=== PATIENT | female | born 1965 | race Caucasian/White ===

== ENCOUNTER 2019-07-23 11:55 | Outpatient (CLI) | payer OTHER, BC, SELFPAY ==
--- NOTE | 2019-07-23 12:05 | XRR_ITS ---
PROCEDURE INFORMATION: Exam: XR Right Foot Complete Exam date and time: 07/23/2019 12:08 PM Age: 54 years old Clinical indication: Injury or trauma; Injury history: Dropped trailer ramp on foot; Initial encounter; Blunt trauma; Right; Injury date: 07/22/19; Prior surgery; Surgery type: Cyst removal RT foot; Additional info: Pain TECHNIQUE: Imaging protocol: XR Right foot. Views: Frontal, lateral, and oblique views. COMPARISON: CR Foot 3 views, RIGHT* [id number] 11/15/2017 8:53 AM FINDINGS: Bones/joints: Slight lateral articular marginal hypertrophy and medial joint narrowing of the 1st metatarsophalangeal joint. No acute bony abnormality identified. An os tibiale externum is present, a sometimes symptomatic normal variant. A small plantar calcaneal ossified spur is present. Soft tissues: Normal. XR/XR foot RT min 3V* [id number] IMPRESSION: 1. 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 2. No acute bony injury identified. 3. Plantar calcaneal spur.
== END 2019-07-23 11:56 | disposition home or self-care (01) ==
LOC: RAD 12:01
PROVIDERS: PCP Electrodiagnostic Medicine; Visit Provider Electrodiagnostic Medicine
DX: M25.571 Pain in right ankle and joints of right foot (principal); M19.071 Primary osteoarthritis, right ankle and foot; M77.31 Calcaneal spur, right foot
CPT/HCPCS: 73630

== ENCOUNTER 2020-06-03 15:13 | Outpatient (CLI) | payer OTHER, BC, SELFPAY ==
--- NOTE | 2020-06-03 15:18 | MM_ITS ---
WS: [id number] BILATERAL DIGITAL SCREENING MAMMOGRAPHY WITH CAD CLINICAL INFORMATION: SCREENING HISTORY: Screening mammogram. No current complaints. COMPARISON: TECHNIQUE: Bilateral CC and MLO views. FINDINGS: Scattered fibroglandular densities bilaterally. No suspicious focal mass, asymmetry, calcifications, or architectural distortion. No evidence of malignancy. MM/[place] [id number] IMPRESSION: BI-RADS: 1-Negative FOLLOW UP: 1 Year Follow-up Recommend return to annual screening mammography.
== END 2020-06-03 15:14 | disposition home or self-care (01) ==
LOC: RADSHAW 15:17
PROVIDERS: PCP Electrodiagnostic Medicine; Visit Provider Electrodiagnostic Medicine
DX: Z12.31 Encounter for screening mammogram for malignant neoplasm of breast (principal)
CPT/HCPCS: 77067

== ENCOUNTER → 2022-07-11 15:31 | Outpatient (BNVA) | payer BC, OTHER, SELFPAY | PROVIDERS: PCP Electrodiagnostic Medicine; Visit Provider Podiatrist Foot & Ankle Surgery | DX: M20.12 Hallux valgus (acquired), left foot (principal); M20.5X2 Other deformities of toe(s) (acquired), left foot | CPT/HCPCS: 73630 ==

== ENCOUNTER → 2022-10-10 11:44 | Outpatient (BNVA) | payer BC, OTHER, SELFPAY | PROVIDERS: PCP Electrodiagnostic Medicine; Visit Provider Internal Medicine | DX: L40.9 Psoriasis, unspecified (principal); M19.90 Unspecified osteoarthritis, unspecified site; M79.672 Pain in left foot; M20.5X2 Other deformities of toe(s) (acquired), left foot; M20.12 Hallux valgus (acquired), left foot | CPT/HCPCS: 36415; 72100; 72202; 73120; 80053; 82550; 83516; 83520; 84443; 85025; 85651; 86140; 86160; 86162; 86200; 86235; 86255; 86376; 86431; 86704; 86803; 86812; 87340 ==

== ENCOUNTER → 2022-12-06 12:33 | Outpatient (BNVA) | payer BC, OTHER, SELFPAY | PROVIDERS: PCP Electrodiagnostic Medicine; Visit Provider Internal Medicine | DX: M19.90 Unspecified osteoarthritis, unspecified site (principal); M79.672 Pain in left foot; M20.5X2 Other deformities of toe(s) (acquired), left foot; M79.643 Pain in unspecified hand; M47.812 Spondylosis without myelopathy or radiculopathy, cervical region | CPT/HCPCS: 36415; 72040; 86003; 86008 ==

== ENCOUNTER → 2023-08-08 10:42 | Outpatient (BNVA) | payer BC, OTHER, SELFPAY | PROVIDERS: PCP Electrodiagnostic Medicine; Visit Provider Podiatrist Foot & Ankle Surgery | DX: M20.11 Hallux valgus (acquired), right foot; M20.12 Hallux valgus (acquired), left foot; M20.41 Other hammer toe(s) (acquired), right foot; M20.42 Other hammer toe(s) (acquired), left foot | CPT/HCPCS: 73630 ==

== ENCOUNTER 2023-09-11 05:48 | Day surgery (SDC) | payer BC, OTHER, SELFPAY ==
--- NOTE | 2023-09-11 | XR_ITS ---
WS: [id number] INTRAOPERATIVE TECHNIQUE: 2 Spot fluoroscopic images for intraoperative purposes. FLUOROSCOPY TIME: 5 minutes 40 seconds [facility] COMPARISON: None. FINDINGS: Intraoperative changes cannulated screw fixation across the first metatarsal with bunionectomy. XR/XR foot LT 2V [id number] IMPRESSION: Images obtained for intraoperative purposes.
[2023-09-11 06:04] VITALS: BP 143/93; PULSE 89; RESP 16; TEMP 36.2; O2SAT 97; BMI 31.5
[2023-09-11] MEDS: acetaminophen 1,000 MG/100 ML PIGGYBACK 400 MG IV (06:18)
[2023-09-11] MEDS: sodium chloride 0.9% 1,000 ML 30 ML IV (06:21)
--- NOTE | 2023-09-11 06:47 | W.PM.OPSFHP ---
Same Day Surgery H&P Indication for Procedure/HPI DATE OF PROCEDURE: September 11, 2023 CHIEF COMPLAINT/INDICATIONFOR SURGICAL PROCEDURE: LEft foot hallux valgus PREOP DIAGNOSIS: Left foot hallux valgus PLANNED PROCEDURE: Operation Date: 09/11/23 07:00 Proposed Procedures p Bunionectomy Antonio(Left) - Charly Nuñez DPM s Xavi Bunionectomy(Left) - Charly Nuñez DPM Medications/Allergies* Home Medications Medication Instructions Recorded Confirmed Type amitriptyline 10 mg tablet 10 mg PO BEDTIME 07/11/22 09/10/23 History atorvastatin 40 mg tablet 40 mg PO DAILY 07/11/22 09/10/23 History levothyroxine 75 mcg capsule 75 mcg PO DAILY 07/11/22 09/10/23 History meloxicam 15 mg tablet 15 mg PO DAILY 07/11/22 09/10/23 History montelukast 10 mg tablet 10 mg PO DAILY 07/11/22 09/10/23 History paroxetine HCl 10 mg tablet 10 mg PO DAILY 07/11/22 09/10/23 History cetirizine 10 mg tablet (Zyrtec) 10 mg PO DAILY PRN allergies 06/20/23 09/10/23 History tizanidine 4 mg tablet 4 mg PO BEDTIME 09/10/23 09/11/23 History Allergies/Adverse Reactions Allergy/AdvReac Type Severity Reaction Status Date / Time Alpha-Gal Allergy ALGY-Anaphy Verified 09/10/23 10:44 (Dttkkeswf-Gidzh-2,3-Gala laxis Sulfa (Sulfonamide Allergy vomit Verified 08/08/23 10:39 Antibiotics) Current Medications: Generic Name Dose Route Start Last Admin Trade Name Freq PRN Reason Stop Dose Admin Sodium Chloride 1,000 mls @ 30 mls/hr 09/11/23 06:00 09/11/23 06:21 Sodium Chloride 0.9% IV 09/12/23 05:59 30 mls/hr .Q24H DREA Administration Pertinent History/Comorbid Conditions* Medical History (Updated 06/20/23 @ 16:01 by Charly Nuñez DPM) Thyroid disease Osteoarthritis Social History Smoking and tobacco/nicotine status: never used tobacco/nicotine Alcohol intake: current Pertinent Exam Findings alert, oriented x 3, clear to auscultation bilaterally, regular rate & rhythm, operative site marked and procedure specific exam findings Musculoskeletal: Left foot hallux valgus deformity, pain with palpation medial eminence. No pain with range of motion of first metatarsophalangeal joint. Tracking, reducible. Recommendations Surgery/Procedure today Other Plans: Left foot bunionectomy Coding Level of Care Code Acute Code for g Fwd
--- NOTE | 2023-09-11 06:58 | ANES.PREANE2 ---
Pre-Anesthetic Assessment Height/Weight: Height 1.6 m Weight 80.739 kg Temp Pulse Resp BP Pulse Ox O2 Del Method 97.2 F L 89 16 143/93 97 Room Air 09/11/23 06:04 09/11/23 06:04 09/11/23 06:04 09/11/23 06:04 09/11/23 06:04 09/11/23 06:04 Preop Diagnosis: Left foot hallux valgus Operation Date: 09/11/23 07:00 Proposed Procedures p Bunionectomy Antonio(Left) - Charly Nuñez DPM s Xavi Bunionectomy(Left) - Charly Nuñez DPM Familial anesthetic complications: None Was Beta Kadie taken within 24 hours: N/A Was Clonidine taken within 24 hours: N/A Last intake: Intake Last Liquid Date 09/10/23 Last Liquid Time 00:00 Last Solid Date 09/10/23 Last Solid Time 18:30 Social Alcohol (2 beers nightly) and No tobacco Exam alert, oriented x 3, clear to auscultation bilaterally and regular rate & rhythm Airway Mallampati: Class III Dentition: other (missing teeth) Pulmonary Sleep Apnea (inspire implant) Metabolic Thyroid Disease Anesthetic Plan ASA status: 3 Anesthesia: MAC Risk of > 500 ml blood loss (7ml/kg in children): No Other Pertinent Information alpha gal Medications/Allergies Home Medications Medication Instructions Recorded Confirmed Last Taken Type amitriptyline 10 mg tablet 10 mg PO BEDTIME 07/11/22 09/10/23 09/10/23 History atorvastatin 40 mg tablet 40 mg PO DAILY 07/11/22 09/10/23 09/10/23 History levothyroxine 75 mcg capsule 75 mcg PO DAILY 07/11/22 09/10/23 09/10/23 History meloxicam 15 mg tablet 15 mg PO DAILY 07/11/22 09/10/23 09/04/23 History montelukast 10 mg tablet 10 mg PO DAILY 07/11/22 09/10/23 09/10/23 History paroxetine HCl 10 mg tablet 10 mg PO DAILY 07/11/22 09/10/23 09/10/23 History cetirizine 10 mg tablet (Zyrtec) 10 mg PO DAILY PRN allergies 06/20/23 09/10/23 09/07/23 History tizanidine 4 mg tablet 4 mg PO BEDTIME 09/10/23 09/11/23 09/10/23 History hydrocodone 5 mg-acetaminophen 325 1 tab PO Q6H PRN pain #20 tabs 09/11/23 Unknown Rx mg tablet Allergies Allergy/AdvReac Type Severity Reaction Status Date / Time Alpha-Gal Allergy ALGY-Anaphy Verified 09/10/23 10:44 (Jiirsqiux-Icgao-7,3-Gala laxis Sulfa (Sulfonamide Allergy vomit Verified 08/08/23 10:39 Antibiotics) Current Medications Generic Name Dose Route Start Last Admin Trade Name Freq PRN Reason Stop Dose Admin Sodium Chloride 1,000 mls @ 30 mls/hr 09/11/23 06:00 09/11/23 06:21 Sodium Chloride 0.9% IV 09/12/23 05:59 30 mls/hr .Q24H DREA Administration PFSH Anesthesia Medical History Thyroid disease Osteoarthritis Social History Smoking and tobacco/nicotine status: never used tobacco/nicotine Alcohol intake: current Data Anesthesia Cardiac Studies: No Data to Display
[2023-09-11] MEDS: ceFAZolin 2,000 mg SDV 2000 MG IVP (07:04)
[2023-09-11] MEDS: BUPivacaine 0.5% INJ 30 mL INJECTION ×2 (07:11→08:00)
--- NOTE | 2023-09-11 08:30 | W.PM.BPON ---
Date of procedure: 09/11/2023 Surgeon name: Milka DaileyPTiffanie Cutting Machine Tender Helper(s) name(s): MARGO Ruiz Procedure(s) performed: Left foot Antonio bunionectomy Description of findings: Left foot hallux valgus corrected with distal first metatarsal osteotomy Estimated blood loss: 5 cc Tourniquet time: 55 minutes Specimen(s) removed: None Post-operative diagnosis: Left foot hallux valgus
--- NOTE | 2023-09-11 08:31 | PM.OP ---
Operative Report Date of procedure: September 11, 2023 Pre-op diagnosis: Left foot hallux valgus Post-op diagnosis: Same Post-op findings: Repair of left foot hallux valgus via distal first metatarsal osteotomy Procedure done: Left foot Antonio bunionectomy CPT 84425 Implants: Two 4.0 cannulated compression screws from [employer] [employer] Surgeon: Charly Nuñez DPM Cashier Or Checker Stock Clerk: MARGO Ruiz Estimated blood loss: 5 cc 55 minutes Complications: None Findings: See above Procedure: Patient is a 58-year-old female that has a history of left foot hallux valgus. The patient has had the aforementioned chief complaint for some time. Conservative treatment measures have been attempted and the patient has opted for surgical intervention at this time. A lengthy discussion regarding the procedure, including risks and complications has been had with the patient and is noted in the recent clinic note. Written and verbal consent have been obtained. All patient questions have been answered to the patient?s satisfaction. No written or verbal guarantees have been given or implied. The patient has been NPO since midnight. The history has been reviewed and the history and physical is current. The signed consent was confirmed and placed in the patient chart. Patient imaging has been reviewed and is consistent with the diagnosis. Under mild sedation, the patient was brought into the operating room and placed on the table in the supine position. IV antibiotics were given by the anesthesia team as preoperative surgical prophylaxis. General sedation was then performed by the anesthesiateam. A local field block was performed using 0.5% marcaine plain. A pneumatic tourniquet was then placed about the left thigh. The operative extremity was then prepped and draped in the usual fashion. The extremity was then elevated and exsanguinated before the tourniquet was inflated to 325 mmHg. After inflation, the following procedure was then performed. Attention was directed to the left foot where a percutaneous stab incision was made using a #15 blade at the level of the first metatarsal head. Periosteal elevator was used to free of the periosteum on the dorsal plantar aspect of first metatarsal. Next a Jo bur was inserted into the incision and under direct fluoroscopy visualization a transverse osteotomy was made at the level of the first metatarsal neck. A reduction jig was then fixated to the medial aspect of the left foot. The first metatarsal was translated in the lateral direction in the transverse plane before frontal plane rotation was performed to align the sesamoids to the appropriate anatomic position. Next 2 guidewires were driven proximal medial to distal lateral across the osteotomy site. Good positioning of the wires was noted clinically as well as on C-arm imaging. 15 blade was used to make percutaneous stab incision at the base of the wires at the insertion of the skin. The drill for the 4.0 cannulated screw system was then used to drill over the wires across the osteotomy site. The 4.0 headless compression screws were then inserted over the wires and across the osteotomy site. Good purchase of the screws was noted. Good positioning of the screws was noted on C-arm imaging. The site was then irrigated copious amounts sterile saline. A reciprocating power rasp was used to remove the medial shelf of the first metatarsal at the osteotomy site. The tourniquet was let down and good hyperemic response was noted to all digits of the left foot. The incisions were closed using 4-0 nylon in horizontal mattress fashion before being dressed with Xeroform, 4 x 4 gauze, Kerlix, Wenceslao. Patient was placed in a cam boot. The patient tolerated the procedure and anesthesia well and without complication. The patient was transported from the operating room to the recovery room with vital signs stable and vascular status intact to all digits of the left foot. The patient was given both written and verbal instructions to remain weightbearing as tolerated in cam boot to the operative extremity, to keep dressings/splint clean, dry and intact and to take pain medication as directed. The patient will follow-up in the outpatient setting at their scheduled appointment. The patient was discharged with my personal number and was instructed to call if any questions or issues should arise. They were discharged home once anesthesia criteria was met.
[2023-09-11 08:34] VITALS: BP 123/76; PULSE 86; RESP 12; TEMP 36.2; O2SAT 94
[2023-09-11 08:39] VITALS: BP 111/74; PULSE 78; RESP 15; O2SAT 95
[2023-09-11 08:44] VITALS: BP 111/66; PULSE 79; RESP 16; O2SAT 95
[2023-09-11 08:49] VITALS: BP 114/73; PULSE 77; RESP 17; TEMP 36.5; O2SAT 93
[2023-09-11 08:53] VITALS: BP 116/87; PULSE 76; RESP 18; TEMP 36.6; O2SAT 95
--- NOTE | 2023-09-11 09:50 | ANE.PACU2 ---
Inpatient post-anesthesia follow up: Airway intact: Yes Vital signs: Temperature 98 F Pulse Rate 76 Respiratory Rate 18 Blood Pressure 116/87 Pulse Oximetry 95 Oxygen Delivery Me thod Room Air Oxygen Flow Rate Fraction of Inspir ed Oxygen Hydration adequate: Yes Nausea and vomiting: No Pain level: 1 Mental status: Baseline
== END 2023-09-11 09:50 | disposition home or self-care (01) ==
PROVIDERS: PCP Electrodiagnostic Medicine; Visit Provider Podiatrist Foot & Ankle Surgery
PROC: (CPT 28296; principal; 2023-09-11 07:00)
PROC: (CPT 28298; 2023-09-11 07:00)
DX: M20.12 Hallux valgus (acquired), left foot (principal); G47.30 Sleep apnea, unspecified; M19.90 Unspecified osteoarthritis, unspecified site
CPT/HCPCS: 28298; 73620; 76000; C1713; J0131; J0690; J1100; J2250; J2405; J2704; J3010; J3490; J7030

== ENCOUNTER → 2023-09-24 08:33 | Outpatient (BNVA) | payer BC, OTHER, SELFPAY | PROVIDERS: PCP Electrodiagnostic Medicine; Visit Provider Podiatrist Foot & Ankle Surgery | DX: M79.672 Pain in left foot (principal); Z98.890 Other specified postprocedural states; M20.41 Other hammer toe(s) (acquired), right foot; M20.42 Other hammer toe(s) (acquired), left foot; M20.21 Hallux rigidus, right foot | CPT/HCPCS: 73630 ==

== ENCOUNTER → 2023-10-09 13:37 | Outpatient (BNVA) | payer BC, OTHER, SELFPAY | PROVIDERS: PCP Electrodiagnostic Medicine; Visit Provider Podiatrist Foot & Ankle Surgery | DX: M20.12 Hallux valgus (acquired), left foot (principal); Z98.890 Other specified postprocedural states; M20.11 Hallux valgus (acquired), right foot; M20.41 Other hammer toe(s) (acquired), right foot; M20.42 Other hammer toe(s) (acquired), left foot; M20.21 Hallux rigidus, right foot | CPT/HCPCS: 73630 ==

== ENCOUNTER → 2023-10-23 13:21 | Outpatient (BNVA) | payer BC, OTHER, SELFPAY | PROVIDERS: PCP Electrodiagnostic Medicine; Visit Provider Podiatrist Foot & Ankle Surgery | DX: M20.21 Hallux rigidus, right foot (principal); M20.41 Other hammer toe(s) (acquired), right foot; M20.42 Other hammer toe(s) (acquired), left foot; Z98.890 Other specified postprocedural states; M20.12 Hallux valgus (acquired), left foot | CPT/HCPCS: 73630 ==

== ENCOUNTER 2023-11-06 07:53 | Day surgery (SDC) | payer BC, OTHER, SELFPAY ==
[2023-11-06] VITALS (7 sets, daily range): BP systolic 113–143; BP diastolic 57–89; PULSE 72–89; RESP 12–17; TEMP 36.2–36.7; O2SAT 94–99; BMI 30.6
--- NOTE | 2023-11-06 | XR_ITS ---
WS: [id number] XR foot RT 2V [id number] REASON FOR EXAM: AMOS PICS FINDINGS: Plate and screw fixation arthrodesis of the first MTP joint correcting the previously demonstrated va lgus deformity. Surgical appliances are intact and in proper position and alignment. XR/XR foot RT 2V [id number] IMPRESSION: First toe MTP joint arthrodesis as above without abnormality.
--- NOTE | 2023-11-06 08:10 | ANES.PREANE2 ---
Pre-Anesthetic Assessment Height/Weight: Height 5 ft 3 in Weight 173 lb Preop Diagnosis: Hallux rigidus right foot Operation Date: 11/06/23 09:30 Proposed Procedures p Arthrodesis Foot Metatarsophalangeal Joint Arthrodesis(Right) - Charly Nuñez DPM Social No alcohol and No tobacco Exam alert, oriented x 3, clear to auscultation bilaterally and regular rate & rhythm Airway Submandibular: within normal limits Cervical ROM: within normal limits Mallampati: Class II Dentition: other (missing a few back molars) Anesthetic Plan ASA status: 2 Anesthesia: MAC Other: No prior issues with anesthetic NPO since midnight Hypothyroidism, on Synthroid Patient denies any cardiac or pulmonary issues Alpha gal?will use dipravan METS>4 Plan for MAC with surgeon local Medications/Allergies Home Medications Medication Instructions Recorded Confirmed Last Taken Type amitriptyline 10 mg tablet 10 mg PO BEDTIME 07/11/22 11/05/23 11/05/23 22:00 History atorvastatin 40 mg tablet 40 mg PO DAILY 07/11/22 11/05/23 11/05/23 History levothyroxine 75 mcg capsule 75 mcg PO DAILY 07/11/22 11/05/23 11/05/23 History meloxicam 15 mg tablet 15 mg PO DAILY 07/11/22 11/05/23 10/27/23 History montelukast 10 mg tablet 10 mg PO DAILY 07/11/22 11/05/23 11/05/23 History paroxetine HCl 10 mg tablet 10 mg PO DAILY 07/11/22 11/05/23 11/05/23 History cetirizine 10 mg tablet (Zyrtec) 10 mg PO DAILY PRN allergies 06/20/23 11/05/23 11/05/23 History tizanidine 4 mg tablet 4 mg PO BEDTIME 09/10/23 11/05/23 11/05/23 History hydrocodone 5 mg-acetaminophen 325 1 tab PO Q6H PRN pain #20 tabs 09/11/23 11/05/23 Unknown Rx mg tablet Allergies Allergy/AdvReac Type Severity Reaction Status Date / Time Alpha-Gal Allergy ALGY-Anaphy Verified 10/23/23 13:18 (Qzvcgmoyx-Aezkh-3,3-Gala laxis Sulfa (Sulfonamide Allergy vomit Verified 10/23/23 13:18 Antibiotics) [facility] Anesthesia Medical History Thyroid disease Osteoarthritis Social History Smoking and tobacco/nicotine status: never used tobacco/nicotine Alcohol intake: current Data Anesthesia Cardiac Studies: No Data to Display
[2023-11-06] MEDS: sodium chloride 0.9% 1,000 ML 30 ML IV (08:54)
[2023-11-06] MEDS: acetaminophen 1,000 MG/100 ML PIGGYBACK 400 MG IV (08:55)
--- NOTE | 2023-11-06 10:09 | W.PM.OPSUD ---
Surgery/Procedure H&P Update DATE OF PROCEDURE: November 06, 2023 DATE H&P PERFORMED: 10/23/23 H&P UPDATE INFORMATION: I have reviewed H&P completed within last 30 days, I have examined patient prior to procedure, No changes to prior documentation and H&P is in [facility] EMR on date indicated PREOP DIAGNOSIS: Hallux rigidus right foot PLANNED PROCEDURE: Operation Date: 11/06/23 09:30 Proposed Procedures p Arthrodesis Foot Metatarsophalangeal Joint Arthrodesis(Right) - Charly Nuñez DPM
[2023-11-06] MEDS: ceFAZolin 2,000 mg SDV 2000 MG IVP (10:30)
[2023-11-06] MEDS: BUPivacaine 0.5% INJ 30 mL 60 ML INJECTION (11:16)
--- NOTE | 2023-11-06 11:47 | W.PM.BPON ---
Date of procedure: 11/06/2023 Surgeon name: Milka DaileyPTiffanie Escape Wheel Tooth Cutter(s) name(s): Jordan Procedure(s) performed: Right first metatarsophalangeal joint arthrodesis Description of findings: Arthritis first metatarsophalangeal joint Estimated blood loss: 5 cc Tourniquet time: 51 minutes Specimen(s) removed: None Post-operative diagnosis: Right hallux rigidus
--- NOTE | 2023-11-06 11:47 | PM.OP ---
Operative Report Date of procedure: November 06, 2023 Surgeon: Charly Nuñez DPM Procedure: Date of procedure: 11/06/2023 Pre-op diagnosis: Right hallux rigidus Post-op diagnosis: Same Post-op findings: Arthritic changes of first metatarsophalangeal joint with concomitant hallux valgus deformity Procedure done: Right foot first metatarsophalangeal joint arthrodesis CPT 19817 Implants: First metatarsophalangeal joint arthrodesis plate from [employer] with headless compression screw Specimens removed: None Surgeon: Dr. Charly Nuñez DPM Temporary Help Agency Referral Clerk: Jordan Estimated blood loss: 5 cc Tourniquet time: 51 Complications: None Patient is a 58-year-old female that has a history of right hallux rigidus. The patient has had the aforementioned chief complaint for some time. Conservative treatment measures have been attempted and the patient has opted for surgical intervention at this time. A lengthy discussion regarding the procedure, including risks and complications has been had with the patient and is noted in the recent clinic note. Written and verbal consent have been obtained. All patient questions have been answered to the patient?s satisfaction. No written or verbal guarantees have been given or implied. The patient has been NPO since midnight. The history has been reviewed and the history and physical is current. The signed consent was confirmed and placed in the patient chart. Patient imaging has been reviewed and is consistent with the diagnosis. Under mild sedation, the patient was brought into the operating room and placed on the table in the supine position. IV antibiotics were given by the anesthesia team as preoperative surgical prophylaxis. IV sedation was then performed by the anesthesiateam. A local field block was then performed using 0.5% Marcaine plain. A pneumatic tourniquet was then placed about the right ankle. The operative extremity was then prepped and draped in the usual fashion. The extremity was then elevated and exsanguinated before the tourniquet was inflated to 250 mmHg. After inflation, the following procedure was then performed. Attention was directed to the right first metatarsophalangeal joint where a 4.5 cm incision was made dorsally using a #15 blade. Dissection was carried down through subcutaneous and superficial fascia to the level of the first metatarsophalangeal joint capsule. Any bleeders were cauterized as necessary using electrocautery. Care was taken to preserve the extensor hallucis longus tendon as well as the medial neurovascular bundle. #15 blade was used to incise the first metatarsophalangeal joint thus exposing the underlying first metatarsal phalangeal joint. Dissection was further carried out using a #15 blade to expose the entirety of the first metatarsophalangeal joint and the head of the first metatarsal. There was noted to be erosive changes in the head of the first metatarsal consistent with arthritis. There is also noted to be periarticular spurring. Using a sagittal bone saw the osteophytes at the first metatarsal head were removed and passed from the operative field. Next a 0.062 K wire was driven into the head of the first metatarsal centrally before a concave reamer was placed over the wire and used to ream the first metatarsal head. After reaming, all articular cartilage from the head of the first metatarsal was noted to be removed duration for arthrodesis. Next a 0.062 K wire was removed and driven into the base the proximal phalanx centrally. A corresponding convex reamer was used to remove the articular cartilage from the base the proximal phalanx preparation for arthrodesis. Next the site was irrigated with copious muscle sterile saline before K wire was used to fenestrate the head of first metatarsal base the proximal phalanx. The hallux was then positioned into the appropriate position clinically as well as radiographically which was confirmed on C-arm fluoroscopy. The dorsal first metatarsophalangeal joint plate from [employer] was then positioned into the appropriate position and temporarily fixated using olive wires. Good positioning of the plate was noted clinically as well as on C-arm imaging. A 3.5 headless compression lag screw was then driven across the arthrodesis site to provide compression and a distal medial to proximal lateral orientation. The first metatarsophalangeal joint arthrodesis plate was then drilled and filled in standard fashion. Final C arm images were obtained to confirm the positioning of the plate and screws, they were noted to be in the appropriate position. The site was irrigated with copious amounts of sterile saline. Attention was then directed to closure. Deep tissue was closed with 3-0 Vicryl followed by subcuticular closure with 4-0 Vicryl and skin closure with 4-0 nylon in running interlocking fashion. Incision site was dressed with Xeroform, 4 x 4 gauze, Kerlix, Wenceslao. Patient was placed in a cam boot. The patient tolerated the procedure and anesthesia well and without complication. The patient was transported from the operating room to the recovery room with vital signs stable and vascular status intact to all digits of the right foot. The patient was given both written and verbal instructions to remain nonweightbearing to the operative extremity, to keep dressings/splint clean, dry and intact and to take pain medication as directed. The patient will follow-up in the outpatient setting at their scheduled appointment. The patient was discharged with my personal number and was instructed to call if any questions or issues should arise. They were discharged home once anesthesia criteria was met.
--- NOTE | 2023-11-06 12:30 | ANE.PACU2 ---
Inpatient post-anesthesia follow up: Airway intact: Yes Vital signs: Temperature 98.0 F Pulse Rate 73 Respiratory Rate 16 Blood Pressure 131/78 Pulse Oximetry 98 Oxygen Delivery Me thod Room Air Oxygen Flow Rate Fraction of Inspir ed Oxygen Hydration adequate: Yes Nausea and vomiting: No Pain level: 1 Mental status: Baseline
== END 2023-11-06 12:33 | disposition home or self-care (01) ==
PROVIDERS: PCP Electrodiagnostic Medicine; Visit Provider Podiatrist Foot & Ankle Surgery
PROC: (CPT 28740; principal; 2023-11-06 09:20)
DX: M20.21 Hallux rigidus, right foot (principal); E03.9 Hypothyroidism, unspecified; M19.90 Unspecified osteoarthritis, unspecified site
CPT/HCPCS: 28750; 73620; 76000; C1713 ×2; J0131; J0690; J3010; J3490; J7030

== ENCOUNTER → 2023-11-20 13:26 | Outpatient (BNVA) | payer BC, OTHER, SELFPAY | PROVIDERS: PCP Electrodiagnostic Medicine; Visit Provider Podiatrist Foot & Ankle Surgery | DX: M79.671 Pain in right foot (principal); Z98.890 Other specified postprocedural states; M20.21 Hallux rigidus, right foot; M20.10 Hallux valgus (acquired), unspecified foot; M20.41 Other hammer toe(s) (acquired), right foot; M20.42 Other hammer toe(s) (acquired), left foot | CPT/HCPCS: 73630 ==

== ENCOUNTER 2023-11-29 09:16 | Outpatient (CLI) | payer BC, OTHER, SELFPAY ==
--- NOTE | 2023-11-29 09:19 | MM_ITS ---
WS: [id number] BILATERAL SCREENING DIGITAL TOMOSYNTHESIS MAMMOGRAM WITH CAD HISTORY: SCREENING COMPARISON: 06/03/2020, 07/30/2018 Bilateral CC and MLO views with tomosynthesis and synthetic mammography submitted. Computer aided det ection analyzed. Breast composition: There are scattered areas of fibroglandular density. No suspicious masses, microc alcifications or architectural distortion. MM/MM scr BI tomosynthesis [id number] IMPRESSION: BI-RADS: 1 - Negative. FOLLOW UP: 1 Year Follow-up
== END 2023-11-29 09:17 | disposition home or self-care (01) ==
LOC: RAD 09:17
PROVIDERS: PCP Electrodiagnostic Medicine; Visit Provider Electrodiagnostic Medicine
DX: Z12.31 Encounter for screening mammogram for malignant neoplasm of breast (principal); R92.323 Mammographic fibroglandular density, bilateral breasts
CPT/HCPCS: 77063; 77067

== ENCOUNTER → 2023-12-04 13:24 | Outpatient (BNVA) | payer BC, OTHER, SELFPAY | PROVIDERS: PCP Electrodiagnostic Medicine; Visit Provider Podiatrist Foot & Ankle Surgery | DX: M20.21 Hallux rigidus, right foot (principal); M20.41 Other hammer toe(s) (acquired), right foot; M20.42 Other hammer toe(s) (acquired), left foot | CPT/HCPCS: 73630 ==

== ENCOUNTER → 2023-12-19 14:30 | Outpatient (BNVA) | payer BC, OTHER, SELFPAY | PROVIDERS: PCP Electrodiagnostic Medicine; Visit Provider Podiatrist Foot & Ankle Surgery | DX: M20.21 Hallux rigidus, right foot (principal); Z98.890 Other specified postprocedural states; M20.41 Other hammer toe(s) (acquired), right foot; M20.42 Other hammer toe(s) (acquired), left foot; M20.10 Hallux valgus (acquired), unspecified foot | CPT/HCPCS: 73630 ==